=== PATIENT | male | born 1985 | race Caucasian/White ===

== ENCOUNTER → 2018-08-21 | Outpatient (REF) | payer OTHER | LOC: M LAB REF 16:11 | PROVIDERS: ATTEND Physician Assistant | DX: J02.9 Acute pharyngitis, unspecified (principal) ==

== ENCOUNTER → 2019-07-08 | Outpatient (CLI) | payer OTHER ==
--- NOTE | 2019-07-08 09:51 | REP ---
Clinical: Right testicular pain/lump. Technique: Real time liz scale and color Doppler evaluation using linear high frequency transducer. Findings: The bilateral testicles and epididymi are normal in size, echo texture and vascularity. No focal testicular mass lesion, infectious/inflammatory process, or torsion. Small right hydrocele noted. No varicocele. No obvious abnormality. Right testicle measures 4.9 x 2.2 x 3.4 cm. Left testicle measures 4.6 x 2.6 x 2.9 cm. Impression: Small right hydrocele. Otherwise normal scrotal ultrasound. Electronically Signed by Manuel Bauman MD 07/08/2019 09:42 A
== END ==
LOC: M RAD 09:01
PROVIDERS: ATTEND Nurse Practitioner Family
DX: N43.3 Hydrocele, unspecified (principal)

== ENCOUNTER → 2024-03-05 | Outpatient (REF) | payer OTHER | LOC: M LABSMT 09:05 | PROVIDERS: ATTEND Urology | DX: Z30.2 Encounter for sterilization (principal) ==

== ENCOUNTER → 2024-05-01 | Outpatient (REF) | payer OTHER ==
[2024-05-01 09:51] LABS: SEMEN APPEARANCE OPAQUE (OPAQUE); SEMEN VISCOSITY VISCOUS (LIQUID); SEMEN VOLUME 2.1 ml (2.0-5.0); WBC CONCENTRATION >1 M/ml (<=1 M/ml)
== END ==
LOC: M SMT 09:19
PROVIDERS: ATTEND Urology
DX: Z30.2 Encounter for sterilization (principal)